=== PATIENT | male | born 1985 | race Caucasian/White ===

== ENCOUNTER 2018-12-10 13:18 | Emergency (ER) | payer MEDICAID ==
[~2018-12-10] VITALS: Ht 180.3 cm; Wt 65.5 kg
[2018-12-10 13:50] LABS: BASOPHILS # (AUTO) 0.05 x10^3/uL (0-0.1); BASOPHILS % (AUTO) 1 % (0-1); EOSINOPHILS # (AUTO) 0.11 x10^3/uL (0-0.4); EOSINOPHILS % (AUTO) 1 % (1-7); LYMPHOCYTES # (AUTO) 0.76 x10^3/uL (1-3.4); LYMPHOCYTES % (AUTO) 9 % (22-44); MD NO; MEAN CORPUSCULAR HEMOGLOBIN 30.1 pg (27.5-34.5); MEAN CORPUSCULAR HGB CONC 34.2 g/dL (33.2-36.2); MEAN CORPUSCULAR VOLUME 87.9 fL (81-97); MEAN PLATELET VOLUME 9.4 fL (7.4-10.4); MONOCYTES # (AUTO) 1.05 x10^3/uL (0.2-0.8); MONOCYTES % (AUTO) 13 % (2-9); NEUTROPHILS # (AUTO) 6.29 x10^3/uL (1.8-6.8); NEUTROPHILS % (AUTO) 76 % (42-75); PLATELET COUNT 197 x10^3/uL (130-400); RED BLOOD COUNT 5.18 x10^6/uL (4.38-5.82); RED CELL DISTRIBUTION WIDTH 12.9 % (9.4-14.8)
[2018-12-10 13:59] LABS: ALANINE AMINOTRANSFERASE 26 U/L (12-78); ALBUMIN 3.4 g/dL (3.4-5.0); ANION GAP 6 mmol/L (5-15); CALCIUM 8.8 mg/dL (8.5-10.1); CHLORIDE 109 mmol/L (98-107); CREATININE 1.11 mg/dL (0.7-1.3)
[2018-12-10] MEDS ORDERED: ASPIRIN 81 MG TABLET CHEW PO ONE (14:00)
[2018-12-10] MEDS ORDERED: ASPIRIN 81 MG TABLET CHEW ONE (14:01)
[2018-12-10 14:03] LABS: ALKALINE PHOSPHATASE 77 U/L (45-117); BILIRUBIN,TOTAL 0.6 mg/dL (0.2-1.0); TOTAL PROTEIN 6.9 g/dL (6.4-8.2); TROPONIN I < 0.015 ng/mL (0.000-0.045)
--- NOTE | 2018-12-10 14:12 | NUR ---
PT. IS A & O X 4 WITH C/O BACK PAIN AFTER LIFTING WELL CHEST WALL PAIN. PT. IS PINK, WARM AND DRY. LUNGS ARE CTA. MM ARE PINK AND MOIST WITH PULSES +2 THROUGHOUT. PT.'S CAP REFILL IS BRISK. PT. WAS PLACED ON THE CP MONITOR. ASA WAS GIVEN. PT. IS RESTING WITH THE SIDERAILS UP X 2 AND THE CALL LIGHT IS IN PLACE. HOB IS ELEVATED GREATER THAN 30 DEGREES.
[2018-12-10] MEDS ORDERED: KETOROLAC 30 MG/1 ML ONE (14:29)
[2018-12-10] MEDS ORDERED: KETOROLAC 30 MG/1 ML IM ONE (14:30)
[2018-12-10] MEDS ORDERED: PLEASE ENTER ALLERGIES MC SCH (14:30)
[2018-12-10 15:45] VITALS: BP 103/66
--- NOTE | 2018-12-10 15:45 | NUR ---
FLOAT RN ASSISTING PRIMARY RN HARMAN WITH DISCHARGE ONLY. DISCHARGE INSTRUCTIONS GIVEN TO PT AND FAMILY, BOTH VERBALIZED UNDERSTANDING, HANDOUTS AND RX IN HAND. AMBULATED TO CHECKOUT DESK WITH STEADY GAIT. A&OX4. VSS AT DISCHARGE, SR ON MONITOR AT DISCHARGE.
== END 2018-12-10 15:50 | disposition home or self-care (01) ==
LOC: ED 15:44
DX: M54.16 Radiculopathy, lumbar region (principal); R07.89 Other chest pain; R06.02 Shortness of breath
CPT/HCPCS: 36415; 71045; 72110; 80053; 84484; 85025; 93005; 96372; 99284; J1885

== ENCOUNTER 2021-04-16 13:22 | Emergency (ER) | payer MEDICAID ==
[~2021-04-16] VITALS: Ht 180.3 cm; Wt 70.1 kg
[2021-04-16 13:31] VITALS: BP 111/69
== END 2021-04-16 13:59 | disposition home or self-care (01) ==
LOC: ED 13:50
DX: L24.9 Irritant contact dermatitis, unspecified cause (principal)
CPT/HCPCS: 99282